=== PATIENT | male | born 1970 | race Caucasian/White ===

== ENCOUNTER 2021-08-05 11:02 | Emergency (ER) | payer BC ==
[2021-08-05] MEDS ORDERED: HYDROmorphone 0.5 MG/0.5 ML Syringe IM ONE (11:31)
[2021-08-05 12:25] LABS: ESTIMATED GFR > 60 mL/min (>60)
[2021-08-05] MEDS ORDERED: Lidocaine 1% 10 ML MDV INJECT ONE (12:41)
[2021-08-05] MEDS ORDERED: Diphtheria,Pertussis(Acell),Tetanus Vaccine 0.5 ML Syringe IM ONE (13:01)
== END 2021-08-05 13:49 | disposition home or self-care (01) ==
LOC: JD.ED 11:02
DX: S02.2XXA Fracture of nasal bones, initial encounter for closed fracture (principal); I10 Essential (primary) hypertension; V86.99XA Unspecified occupant of other special all-terrain or other off-road motor vehicle injured in nontraffic accident, initial encounter; Z23 Encounter for immunization; Y92.410 Unspecified street and highway as the place of occurrence of the external cause
CPT/HCPCS: 36415; 70450; 70486; 80053; 85025; 90471; 90715; 96372; 99284; J1170; 12011